=== PATIENT | male | born 1990 | race African-American/Black ===

== ENCOUNTER 2017-11-26 09:30 | Emergency (ER) | payer SELFPAY ==
[~2017-11-26] VITALS: Ht 182.9 cm; Wt 154.2 kg
[~2017-11-26 09:30] MED LIST: CHERATUSSIN AC118 ML PO; IBUPROFEN600 M1 PO; ZOFRAN ODT4 MG ORAL
[2017-11-26 09:50] VITALS: BP 106/60
[2017-11-26] MEDS ORDERED: ZOFRAN4 M3 ORAL (10:16)
--- NOTE | 2017-11-26 10:20 | Emergency Room Report ---
History of Present Illness General Chief Complaint: Headache Source: Patient Present Illness HPI Patient presents with complaints of mild headache that was fairly diffuse he reports that he was not drinking enough water over the past weekend Reports that he feels significantly better after being in a cool area here this morning Patient denies any fall or trauma denies any chest pain or shortness of breath he felt that his blood pressure might of been high as in the past when he had a mild headache like this it was high Denies any other recent travel denies any focal weakness denies any blurring of his vision describes the pain is 3 out of 10 aching Allergies: Coded Allergies: No Known Allergies (Unverified , 09/26/14) Patient History Past Medical History: see triage record Pertinent Family History: none Reviewed Nursing Documentation: PMH: Agreed; PSxH: Agreed Nursing Documentation-PMH Past Medical History: No Stated History Hx Cardiac Problems: No Hx Hypertension: No Hx Pacemaker: No Hx Asthma: No Hx COPD: No Hx Diabetes: No Hx Cancer: No Hx Gastrointestinal Problems: No Hx Dialysis: No Hx Neurological Problems: No Hx Cerebrovascular Accident: No Hx Seizures: No Review of Systems All Other Systems: negative except mentioned in HPI Physical Exam Vital Signs Date Time Temp Pulse Resp B/P (MAP) Pulse Ox O2 Delivery O2 Flow Rate FiO2 11/26/17 09:34 97.9 75 16 106/60 92 Room Air 97.9 Sp02 EP Interpretation: reviewed, normal General Appearance: well appearing, no apparent distress - Initially the patient was sitting in a chair, and had audible snoring while sitting up Head: normocephalic, atraumatic Eyes: bilateral eye PERRL, bilateral eye EOMI ENT: hearing grossly normal, normal pharynx, TMs + canals normal, uvula midline Neck: full range of motion, supple, no meningismus, no bony tend Respiratory: lungs clear, normal breath sounds, no rhonchi, no respiratory distress, no retraction, no accessory muscle use Cardiovascular #1: normal peripheral pulses, regular rate, rhythm, no edema, no gallop, no JVD, no murmur Gastrointestinal: normal bowel sounds, non tender, soft, no mass, no organomegaly, non-distended, no guarding, no hernia, no pulsatile mass, no rebound Musculoskeletal: normal inspection Neurologic: oriented x3, responsive, gas inspector III-XII nml as tested, motor strength/ tone normal, sensory intact Psychiatric: mood/affect normal Skin: normal color, no rash, warm/dry, palpation normal Lymphatic: normal inspection, no adenopathy Medical Decision Making Diagnostic Impression: Primary Impression: Headache Additional Impression: sleep apnea ER Course Patient had slept while waiting to be seen, reports that he feels significantly better during this time, patient also had audible snoring while waiting here showing clinical signs of likely sleep apnea During the history patient also reports that she had awoken to the sensation of the headache I discussed the importance of following up with primary physician for close follow-up Multiple differentials such as neurological neurosurgical infectious pathology were entertained however patient has a otherwise benign medical evaluation there are no focal findings and does not meet criteria for further imaging at this time Patient will return with any concerns or changes, Last Vital Signs Date Time Temp Pulse Resp B/P (MAP) Pulse Ox O2 Delivery O2 Flow Rate FiO2 11/26/17 09:34 97.9 75 16 106/60 92 Room Air 97.9 Status: improved Disposition: HOME, SELF-CARE Condition: Stable Scripts Ondansetron* (ZOFRAN*) 4 Mg Tablet 4 MG ORAL Q8HR PRN for Nausea & Vomiting, #10 TAB Prov: Susi Renteria DO 11/26/17 Referrals: NOT CHOSEN IPA/MD,REFERRING (PCP) Patient Instructions: General Headache Without Cause, Sleep Apnea, [id number] Additional Instructions: Patient is provided with the discharge instructions notified to follow up with primary doctor in the next 2-3 days otherwise return to the er with any worsening symptoms. Please note that this report is being documented using [employer] technology. This can lead to erroneous entry secondary to incorrect interpretation by the dictating instrument. Susi Renteria DO Nov 26, 2017 10:20
[2017-11-26 10:43] VITALS: BP 106/60
== END 2017-11-26 10:40 | disposition home or self-care (01) ==
LOC: EDBD 09:30 → EMR 09:52
DX: R51 Headache (principal); G47.30 Sleep apnea, unspecified
CPT/HCPCS: 99283